=== PATIENT | male | born 1985 | race Caucasian/White ===

== ENCOUNTER 2020-09-11 16:25 | Emergency (ER) | payer OTHER ==
[2020-09-11] MEDS ORDERED: NAPROSYN500 MG PO (19:00)
== END 2020-09-11 19:13 | disposition home or self-care (01) ==
LOC: ER1 16:25
DX: S30.0XXA Contusion of lower back and pelvis, initial encounter (principal); S70.02XA Contusion of left hip, initial encounter; M79.605 Pain in left leg; F17.200 Nicotine dependence, unspecified, uncomplicated; W01.10XA Fall on same level from slipping, tripping and stumbling with subsequent striking against unspecified object, initial encounter; Y92.009 Unspecified place in unspecified non-institutional (private) residence as the place of occurrence of the external cause
CPT/HCPCS: 72131; 73502; 96372; 99284; J1885